=== PATIENT | female | born 2000 | race Caucasian/White ===

== ENCOUNTER 2022-12-07 09:23 | Outpatient (CLI) | payer BC, SELFPAY ==
[2022-12-07 11:35] LABS: Cholesterol* 211 mg/dL (90-199); Glucose* 93 mg/dL (60-115)
[2022-12-07 11:36] LABS: HDL Cholesterol* 100 mg/dL (>=50); LDL Cholesterol Calculated 89 mg/dL (<100); Triglycerides* 112 mg/dL (40-149)
[2022-12-07 12:43] LABS: Chlamydia DNA Amplified* NOT DETECTED (No Detected); GC DNA Amplified* NOT DETECTED (No Detected)
== END 2022-12-07 09:24 | disposition home or self-care (01) ==
PROVIDERS: Visit Provider Registered Nurse
DX: Z01.419 Encounter for gynecological examination (general) (routine) without abnormal findings (principal); Z13.6 Encounter for screening for cardiovascular disorders; Z13.1 Encounter for screening for diabetes mellitus; Z11.3 Encounter for screening for infections with a predominantly sexual mode of transmission
CPT/HCPCS: 80061; 82947; 87491; 87591